=== PATIENT | female | born 1960 | race Caucasian/White ===

== ENCOUNTER 2018-10-04 18:22 | Emergency (ER) | payer OTHER ==
--- NOTE | 2018-10-04 19:00 | PDOC ---
Rapid Medical Evaluation Chief Complaint: Chest Pain Time Seen by Provider: 10/04/18 18:56 Medical Evaluation: 10/04/18 18:57 I have performed a brief in-person evaluation of this patient. The patient presents with a chief complaint of: Chest pain with noted HTN x 2 readings at home today. No hx of HTN, no medications Pertinent physical exam findings: pale, NAD I have ordered the following: EKG The patient will proceed to the ED for further evaluation. 10/04/18 18:57
[2018-10-04 19:02] VITALS: PULSE 83; TEMP 98; BMI 26.7
--- NOTE | 2018-10-04 19:43 | PDOC ---
Attending Attestation - Resident Resident Name: AnyiTavon - ED Attending Attestation I have performed the following: I have examined & evaluated the patient, The case was reviewed & discussed with the resident, I agree w/resident's findings & plan, Exceptions are as noted - HPI HPI: 10/04/18 20:08 58 yo F h/o osteoporosis She presents with a complaint of chest discomfort (intermittently yesterday, she is currently asymptomatic) She checked her blood pressure and noted that is was elevated (150s/100) She contacted her brother who is a communications tech and he advised that she go in to the ER Pt is currently asymptomatic - Physicial Exam PE: 10/04/18 19:43 GENERAL: The patient is in no acute distress. LUNGS: Breath sounds equal, clear to auscultation bilaterally. No wheezes, and no crackles. HEART:Regular rate and rhythm, normal S1 and S2 without murmur, rub or gallop. ABDOMEN: Soft, nontender, normoactive bowel sounds. No guarding, no rebound. No masses palpable. EXTREMITIES: Normal range of motion, no edema. No clubbing or cyanosis. No erythema, or tenderness. NEUROLOGICAL: Cranial nerves II through XII grossly intact. Normal speech. No focal neurological deficits. 10/04/18 20:09 - Medical Decision Making 10/04/18 20:10 Twelve-lead EKG was performed and reviewed by me. There is normal sinus rhythm with a normal rate. The axis is normal. The intervals are normal. There are no ST or T wave abnormalities. Impression: Normal twelve-lead EKG 10/04/18 21:04 Laboratory Tests 10/04/18 10/04/18 10/04/18 20:07 20:07 20:07 WBC 8.2 Hgb 13.9 Hct 42.4 Plt Count 357 INR 0.95 BUN 20 H Creatinine 0.7 Creatine Kinase 134 Troponin I < 0.02 Labs wnl Will repeat BP Will plan to discharge to home Return to the ER for any other concerns or complaints Clinical Impression: hypertension, initial presentation *DC/Admit/Observation/Transfer Diagnosis at time of Disposition: Essential hypertension - Discharge Dispostion Disposition: HOME Condition at time of disposition: Improved Decision to Admit order: No - Referrals Referrals: Mercedes Allen PA [Primary Care Provider] - - Patient Instructions Printed Discharge Instructions: DI for High Blood Pressure, How to Monitor Your Blood Pressure at Home Additional Instructions: Come back to the ER for any new, worsening or concerning symptoms. Please follow up with your primary care provider to start a plan to treat your hypertension. - Post Discharge Activity
--- NOTE | 2018-10-04 20:13 | PDOC ---
History of Present Illness - General Chief Complaint: Blood Pressure Problem Stated Complaint: CHEST PAIN, HIGH BLOOD PRESSURE Time Seen by Provider: 10/04/18 18:56 History Source: Patient Exam Limitations: No Limitations - History of Present Illness Initial Comments: 10/04/18 20:13 58F with pmh of osteoporosis presents to the ED complaining of elevated blood pressure for the past two days. She checked it yesterday after feeling some mild chest discomfort using a at-home machine usually used by her . The chest pain yesterday was non-reproducible by palpation and was on the left side of the chest, [id number], not associated with exertion. She notes that she had that kind of pain many times before. She found that she had a pressure of 150/100 yesterday and 145/100 today. [place]state quoter brother advised her that there was probably nothing to worry about but to go to ER if she was really concerned. Presently asymptomatic. Denies headaches, change in vision, chest pain, shortness of breath, leg edema. 10/04/18 20:21 Past History - Past Medical History Allergies/Adverse Reactions: Allergies Allergy/AdvReac Type Severity Reaction Status Date / Time No Known Allergies Allergy Verified 10/04/18 18:58 Home Medications: Ambulatory Orders Calcium Carbonate/Vitamin D3 [Calcium 500-Vit D3 600 Tablet] 1 each PO ASDIR 11/09 Denosumab [Prolia] 60 mg SQ ASDIR 10/04/18 COPD: No Other medical history: osteoporosis - Suicide/Smoking/Psychosocial Hx Smoking History: Never smoked Review of Systems - Review of Systems Able to Perform ROS?: Yes Is the patient limited [place]an proficient: No Constitutional: No: Symptoms Reported HEENTM: No: Symptoms Reported Respiratory: No: Symptoms reported Cardiac (ROS): Yes: See HPI ABD/GI: No: Symptoms Reported : No: Symptoms Reported Musculoskeletal: No: Symptoms Reported Integumentary: No: Symptoms Reported Neurological: No: Symptoms reported All Other Systems: Reviewed and Negative *Physical Exam - Vital Signs Last Vital Signs Temp Pulse Resp BP Pulse Ox 98 F 83 14 180/100 H 100 10/04/18 19:00 10/04/18 19:00 10/04/18 19:00 10/04/18 19:00 10/04/18 19:00 - Physical Exam General Appearance: Yes: Nourished, Appropriately Dressed. No: Apparent Distress HEENT: positive: EOMI, MORE, Normal ENT Inspection Neck: negative: Other Respiratory/Chest: positive: Lungs Clear, Normal Breath Sounds, Respiratory Distress. negative: Chest Tender Cardiovascular: positive: Regular Rhythm, Regular Rate, S1, S2 Gastrointestinal/Abdominal: positive: Normal Bowel Sounds, Flat, Soft. negative : Tender Musculoskeletal: positive: Normal Inspection. negative: CVA Tenderness Extremity: positive: Normal Capillary Refill, Normal Inspection, Normal Range of Motion Integumentary: positive: Normal Color, Dry, Warm Neurologic: positive: Fully Oriented, Alert, Normal Mood/Affect, Normal Response , Motor Strength 03/27 ED Treatment Course - LABORATORY CBC & Chemistry Diagram: 10/04/18 20:07 10/04/18 20:07 Medical Decision Making - Medical Decision Making 10/04/18 20:29 58f with asymptomatic htn and 2x episode of chest discomfort earlier today. Essential hypertension vs ACS vs stable angina vs costochondritis vs pneumonia The patient felt the chest discomfort yesterday after working out not during which makes angina less likely, especially since her EKG is completely normal ( normal sinu rhythm, vent. rate 77bpm, UT 164, QRS 68, QT/QTc: 388/439). She admitted that the last time she had her BP checked last year she was told it was slightly higher than average and never followed which makes it likely that it increased over time, indicating essential hypertension, especially in the setting of being asymptomatic. We will still check her basic labs, tsh, trops and xray. 10/04/18 22:19 All labs negative Will repeat BP and discharge with PCP follow up. *DC/Admit/Observation/Transfer Diagnosis at time of Disposition: Essential hypertension - Discharge Dispostion Disposition: HOME Condition at time of disposition: Improved Decision to Admit order: No - Referrals - Patient Instructions Printed Discharge Instructions: DI for High Blood Pressure, How to Monitor Your Blood Pressure at Home Additional Instructions: Come back to the ER for any new, worsening or concerning symptoms. Please follow up with your primary care provider to start a plan to treat your hypertension. - Post Discharge Activity
[2018-10-04 20:25] LABS: BASO % 0.8 % (0-2.0); EOS % 2.6 % (0-4.5); HEMATOCRIT 42.4 % (32.4-45.2); HEMOGLOBIN 13.9 GM/dL (10.7-15.3); LYMPH % 45.8 % (8-40); MCH 26.5 pg (25.7-33.7); MCHC 32.7 g/dl (32.0-36.0); MEAN CELL VOLUME 81.1 fl (80-96); MEAN PLT VOLUME 8.3 fl (7.5-11.1); MONO % 6.4 % (3.8-10.2); NEUT % 44.4 % (42.8-82.8); PLATELET COUNT 357 K/MM3 (134-434); RBC 5.23 M/mm3 (3.60-5.2); RDW 13.6 % (11.6-15.6); WHITE BLOOD COUNT 8.2 K/mm3 (4.0-10.0)
[2018-10-04 20:45] LABS: INR 0.95 (0.83-1.09); PROTHROMBIN TIME (PATIENT) 11.2 SEC (9.7-13.0)
[2018-10-04 21:00] LABS: ALBUMIN 4.4 g/dl (3.4-5.0); ALK PHOS 50 U/L (45-117); ANION GAP 9 MMOL/L (8-16); BILIRUBIN,TOTAL 0.2 mg/dL (0.2-1); BLOOD UREA NITROGEN 20 mg/dL (7-18); CALCIUM 8.8 mg/dL (8.5-10.1); CHLORIDE 107 mmol/L (98-107); CO2 25 mmol/L (21-32); CREATININE 0.7 mg/dL (0.55-1.3); GLUCOSE,RANDOM 92 mg/dL (74-106); MAGNESIUM 2.4 mg/dL (1.8-2.4); POTASSIUM 4.6 mmol/L (3.5-5.1); SGOT/AST 18 U/L (15-37); SGPT/ALT 20 U/L (13-61); SODIUM 140 mmol/L (136-145); TOT PROT 7.8 g/dl (6.4-8.2)
[2018-10-04 23:40] VITALS: BP 159/93
--- NOTE | 2018-10-05 16:30 | EKG ---
Test Reason : Blood Pressure : / mmHG Vent. Rate : 077 BPM Atrial Rate : 077 BPM P-R Int : 164 ms QRS Dur : 068 ms QT Int : 388 ms P-R-T Axes : 060 048 043 degrees QTc Int : 439 ms NORMAL SINUS RHYTHM NORMAL ECG NO PREVIOUS ECGS AVAILABLE Confirmed by MD [place], Ruben ([id number]) on 10/05/2018 4:29:39 PM Referred By: Confirmed By:Ruben Putnam MD
== END 2018-10-04 23:36 | disposition home or self-care (01) ==
LOC: JER 18:22
DX: I10 Essential (primary) hypertension (principal); M81.0 Age-related osteoporosis without current pathological fracture
CPT/HCPCS: 36415; 71046-TC-FY; 80053; 82550; 83735; 84443; 84484; 85025; 85610; 93005; 93010; 99283-25